=== PATIENT | female | born 1970 | race Caucasian/White ===

== ENCOUNTER 2021-02-11 18:29 | Inpatient (IN) | payer OTHER, SELFPAY ==
[2021-02-11 18:44] VITALS: BP 188/90; PULSE 73; RESP 18; TEMP 36.4; O2SAT 99; BMI 29.2
[2021-02-11 19:50] LABS: Add Manual Diff / Slide Review NO; Basophils Absolute Auto 100 /uL (0-100); Basophils Percent Auto 0.7 % (0-2); Eosinophils Absolute Auto 100 /uL (0-450); Eosinophils Percent Auto 0.8 % (2-4); Hematocrit 45.3 % (36-46); Hemoglobin 15.4 g/dL (12.0-16.0); Lymphocytes Absolute Auto 1400 /uL (1100-4500); Lymphocytes Percent Auto 11.8 % (25-40); Mean Corpuscular HGB Conc 34.1 % (30-36); Mean Corpuscular Hemoglobin 32.9 PG (26-34); Mean Corpuscular Volume 96.7 fL (80-100); Monocytes Absolute Auto 500 /uL (0-900); Monocytes Percent Auto 4.2 % (3-14); Neutrophils Absolute Auto 10100 /uL (1500-7000); Neutrophils Percent Auto 82.5 % (50-75); Platelet Count 394 X10^3/uL (150-400); Red Blood Cell Count 4.69 X10^6/uL (4.0-5.2); Red Cell Distribution Width 12.4 % (11.6-14.8); White Blood Cell Count 12.3 X10^3/uL (4.5-11.0)
[2021-02-11 20:01] LABS: Alanine Aminotransferase 31 IU/L (<35); Albumin 5.4 g/dL (3.5-5.0); Albumin Globulin Ratio 1.3 (1.0-2.8); Alkaline Phosphatase 100 U/L (38-126); Aspartate Aminotransferase 31 IU/L (14-36); BUN Creatinine Ratio 13.6 (6-22); Bilirubin Total 0.6 mg/dL (0.2-1.3); Blood Urea Nitrogen 12 mg/dL (7-17); Calcium 10.4 mg/dL (8.4-10.2); Carbon Dioxide 26 mmol/L (22-32); Chloride 102 mmol/L (98-107); Estimated Glomerular Filt Rate > 60.0 mL/min (>60); Globulin 4.1 g/dL (1.7-4.1); Glucose 114 mg/dL (70-100); HEMOLYSIS < 15 (0-50); Potassium 3.6 mmol/L (3.4-5.1); Sodium 140 mmol/L (137-145); Total Protein 9.5 g/dL (6.3-8.2)
[2021-02-11 20:18] LABS: Lipase 5577 U/L (23-300)
[2021-02-11 20:22] LABS: Bacteria Urine None Seen; Culture Indicated Urine Cult Not Indicated; RBC Urine 0-1/HPF (0-5/HPF); Squamous Epithelial Cell Urine 1-5 /HPF (0-5/HPF); WBC Urine 0-1/HPF (0-5/HPF)
--- NOTE | 2021-02-11 20:39 | ED_ITS ---
HPI - General Adult General Chief complaint: Abdominal Pain Stated complaint: NAUSEA BACK AND ABD PAIN Time Seen by Provider: 02/11/21 18:54 Source: patient Mode of arrival: Family Vehicle Limitations: no limitations History of Present Illness HPI narrative: 50-year-old woman presents with 3 days of increasing left upper abdominal pain and bloating. She has been nauseated but has not actually vomited. She is stooling and has not noticed diarrhea. No dysuria no flank pain. She denies fevers or cough. No tachypnea, tachycardia, orthopnea or lower extremity edema. She notes that she drinks 2-3 glasses of wine daily but does not notice withdrawal symptoms if she is not drinking. She takes no prescription medications at this time. Related Data Allergies Allergy/AdvReac Type Severity Reaction Status Date / Time nitrofurantoin Allergy Rash Verified 02/11/21 18:43 [From Macrobid] Penicillins Allergy Rash Verified 02/11/21 18:42 erythromycin base AdvReac Diarrhea Verified 02/11/21 18:43 Tetracyclines AdvReac Diarrhea Verified 02/11/21 18:43 Review of Systems Review of Systems Narrative: Remainder of complete review of systems is otherwise unremarkable except for that included in the HPI. Patient History Medical History (Updated 02/11/21 @ 22:43 by Bettina Mccracken MD) Pancreatitis Social History Smoking Status: Never smoker Smoking Status: Never smoker alcohol intake frequency: 0-2 drinks per day Alcohol type: wine Substance Use Type: marijuana Exam Narrative Exam Narrative: General: Healthy appearing, in no acute distress. Able to give a complete and coherent history. Well-nourished well-developed HEENT: Moist mucous membranes, normal sclera with reactive pupils, Neck: No JVD, supple Respiratory: Lungs are clear to auscultation, no wheezing no rales no rhonchi. Full and symmetrical air movement Cardiac: Regular rate and rhythm no murmurs no bruits Abdomen: Soft, tender in the left upper quadrant mild distension, no rebound or guarding, good bowel tones, no flank pain Skin: Warm and dry, no rashes Neurologic: Grossly neurologically intact with no obvious asymmetries or abnormalities Extremities: No trauma, well perfused Psych: Cooperative, appropriate insight and affect Initial Vital Signs Initial Vital Signs: Vital Signs Temperature 97.5 F L 02/11/21 18:44 Pulse Rate 73 02/11/21 18:44 Respiratory Rate 18 02/11/21 18:44 Blood Pressure 188/90 H 02/11/21 18:44 Pulse Oximetry 99 02/11/21 18:44 Course Orders Ordered: ED Orders 02/11/21 18:49 EKG-12 Lead Stat 02/11/21 19:35 Complete Blood Count AUTO DIFF Stat Comprehensive Metabolic Panel Stat Ethanol (ETOH) Stat Lipase Stat 02/11/21 20:10 Urine Microscopic Stat 02/11/21 20:40 CT abdomen pelvis w con Stat 02/11/21 21:00 COVID19 - ADMIT (INCOME TAX ADVISOR swab/PCR) Stat Hydromorphone HCl (Hydromorphone 0.5 Mg Inj) 0.5 mg IV Q15MIN PRN PRN Reason: Pain, Last Admin: 02/11/21 20:56 Dose: 0.5 mg Documented by: SOBEIDA Ondansetron HCl (Ondansetron 4 Mg/2 Ml Inj) 4 mg IV PRN PRN PRN Reason: nausea Last Admin: 02/11/21 20:56 Dose: 4 mg Documented by: SOBEIDA Discontinued Medications Sodium Chloride (Normal Saline 0.9%) 1,000 mls @ 1,000 mls/hr IV BOLUS ONE Stop: 02/11/21 21:38 Last Admin: 02/11/21 20:58 Dose: 1,000 mls/hr Documented by: SOBEIDA Thiamine HCl 100 mg/ Sodium (Chloride) 101 mls @ 404 mls/hr IV NOW ONE Stop: 02/11/21 20:40 Last Admin: 02/11/21 20:58 Dose: 404 mls/hr Documented by: SOBEIDA Ceftriaxone Sodium 2,000 mg/ (Sodium Chloride) 100 mls @ 200 mls/hr IV NOW ONE Stop: 02/11/21 21:25 Last Admin: 02/11/21 21:44 Dose: Not Given Documented by: Metronidazole (Flagyl) 500 mg in 100 mls @ 100 mls/hr IV NOW ONE Stop: 02/11/21 22:23 Last Titration: 02/11/21 22:50 Dose: Infused Documented by: Acetaminophen (Ofirmev) 1,000 mg in 100 mls @ 400 mls/hr IV NOW ONE Stop: 02/11/21 22:50 Last Titration: 02/11/21 23:15 Dose: Infused Documented by: Metoclopramide HCl (Metoclopramide 10 Mg/2 Ml Inj) 10 mg IV NOW ONE Stop: 02/11/21 21:44 Last Admin: 02/11/21 21:48 Dose: 10 mg Documented by: Vital Signs Vital signs: Vital Signs - 8 hr 02/11/21 18:44 02/11/21 23:17 Temperature 97.5 F L Pulse Rate 73 67 Respiratory Rate 18 Blood Pressure 188/90 H 158/70 H Pulse Oximetry 99 98 Medical Decision Making Lab Data Result diagrams: 02/11/21 19:35 02/11/21 19:35 Labs: Lab Results 02/11/21 02/11/21 02/11/21 Range/Units 19:35 19:35 19:35 WBC 12.3 H (4.5-11.0) X10^3/uL RBC 4.69 (4.0-5.2) X10^6/uL Hgb 15.4 (12.0-16.0) g/dL Hct 45.3 (36-46) % MCV 96.7 (80-100) fL MCH 32.9 (26-34) PG MCHC 34.1 (30-36) % RDW 12.4 (11.6-14.8) % Plt Count 394 (150-400) X10^3/uL Neut % (Auto) 82.5 H (50-75) % Lymph % (Auto) 11.8 L (25-40) % [place] % (Auto) 4.2 (3-14) % Eos % (Auto) 0.8 L (2-4) % Baso % (Auto) 0.7 (0-2) % Neut # (Auto) 59110 H (8013-5162) /uL Lymph # (Auto) 1400 (4702-1008) /uL [place] # (Auto) 500 (0-900) /uL Eos # (Auto) 100 (0-450) /uL Baso # (Auto) 100 (0-100) /uL Sodium 140 (137-145) mmol/L Potassium 3.6 (3.4-5.1) mmol/L Chloride 102 (98-107) mmol/L Carbon Dioxide 26 (22-32) mmol/L BUN 12 (7-17) mg/dL Creatinine 0.88 (0.52-1.04) mg/dL Estimated GFR > 60.0 (>60) mL/min BUN/Creatinine Ratio 13.6 (6-22) Glucose 114 H (70-100) mg/dL Calcium 10.4 H (8.4-10.2) mg/dL Total Bilirubin 0.6 (0.2-1.3) mg/dL AST 31 (14-36) IU/L ALT 31 (<35) IU/L Alkaline Phosphatase 100 (38-126) U/L Total Protein 9.5 H (6.3-8.2) g/dL Albumin 5.4 H (3.5-5.0) g/dL Globulin 4.1 (1.7-4.1) g/dL Albumin/Globulin Ratio 1.3 (1.0-2.8) Lipase 5577 H (23-300) U/L Urine RBC (0-5/HPF) Urine WBC (0-5/HPF) Ur Squamous Epith Cells (0-5/HPF) Urine Bacteria (None) Ur Culture Indicated? Ethyl Alcohol < 10 ( - 10) mg/dL SARS-CoV-2 (PCR) (Negative) 02/11/21 02/11/21 Range/Units 20:10 21:00 WBC (4.5-11.0) X10^3/uL RBC (4.0-5.2) X10^6/uL Hgb (12.0-16.0) g/dL Hct (36-46) % MCV (80-100) fL MCH (26-34) PG MCHC (30-36) % RDW (11.6-14.8) % Plt Count (150-400) X10^3/uL Neut % (Auto) (50-75) % Lymph % (Auto) (25-40) % [place] % (Auto) (3-14) % Eos % (Auto) (2-4) % Baso % (Auto) (0-2) % Neut # (Auto) (8916-7490) /uL Lymph # (Auto) (7185-4908) /uL [place] # (Auto) (0-900) /uL Eos # (Auto) (0-450) /uL Baso # (Auto) (0-100) /uL Sodium (137-145) mmol/L Potassium (3.4-5.1) mmol/L Chloride (98-107) mmol/L Carbon Dioxide (22-32) mmol/L BUN (7-17) mg/dL Creatinine (0.52-1.04) mg/dL Estimated GFR (>60) mL/min BUN/Creatinine Ratio (6-22) Glucose (70-100) mg/dL Calcium (8.4-10.2) mg/dL Total Bilirubin (0.2-1.3) mg/dL AST (14-36) IU/L ALT (<35) IU/L Alkaline Phosphatase (38-126) U/L Total Protein (6.3-8.2) g/dL Albumin (3.5-5.0) g/dL Globulin (1.7-4.1) g/dL Albumin/Globulin Ratio (1.0-2.8) Lipase (23-300) U/L Urine RBC 0-1/hpf (0-5/HPF) Urine WBC 0-1/hpf (0-5/HPF) Ur Squamous Epith Cells 1-5 /hpf (0-5/HPF) Urine Bacteria None seen (None) Ur Culture Indicated? Cult not indicated Ethyl Alcohol ( - 10) mg/dL SARS-CoV-2 (PCR) Negative (Negative) Point of Care Testing Test Results Negative Urine Dip Bedside Urine Glucose Negative Bedside Urine Bilirubin - Negative Bedside Urine Ketone - Negative Urine Specific [place] 1.025 Bedside Urine Occult Blood - Negative Bedside Urine pH 6.0 Bedside Urine Protein + 30 Bedside Urine Urobilinogen - Negative Bedside Urine Nitrite - Negative Bedside Urine Leukocytes - Negative Esterase Point of care testing: Point of Care Testing Test Results Negative Urine Dip Bedside Urine Glucose Negative Bedside Urine Bilirubin - Negative Bedside Urine Ketone - Negative Urine Specific [place] 1.025 Bedside Urine Occult Blood - Negative Bedside Urine pH 6.0 Bedside Urine Protein + 30 Bedside Urine Urobilinogen - Negative Bedside Urine Nitrite - Negative Bedside Urine Leukocytes - Negative Esterase Imaging Data CT scan - abdomen/pelvis: Radiologist's Impression: FINDINGS:? Image quality:? Excellent.? ? Lung bases:? There is minimal scarring or atelectasis in the left lung base.? ? Heart:? No significant findings. ? ? ABDOMEN: Liver:? There is diffuse hypoattenuation of the liver consistent with fatty infiltration with relative sparing along the gallbladder fossa.? ? Gallbladder:? Within normal limits without calcified gallstones.? ? Biliary ducts:? Unremarkable.? ? Pancreas:? There is mild peripancreatic fat stranding along the pancreatic body and tail consistent with pancreatitis.? No loculated peripancreatic fluid collections.? There is an oval cyst within the body of the pancreas measuring up to 1.5 x 1.2 x 1.5 cm which appears contiguous with the main pancreatic duct.? The pancreatic duct is nondistended. ? ? Spleen:? Unremarkable.? ? Adrenal Glands:? Unremarkable.? ? Kidneys and Ureters:? No hydronephrosis.? There are small left renal cysts.? ? ? Stomach and Bowel:? Stomach, small bowel loops, and colon are normal in caliber and wall thickness.? The appendix is normal in appearance.? There are few colonic diverticula without acute diverticulitis. Peritoneum:? There is minimal free fluid in the pelvis which appears within physiologic limits.? No free air.? ? Ventral Wall: ? No hernia.? Abdominal Nodes:? No retroperitoneal or mesenteric adenopathy by size criteria.? Vessels:? Aorta and inferior vena cava are normal in size.? ? PELVIS: Pelvic Organs:? There is a small left ovarian cyst measuring up to 1.9 cm likely representing a follicular cyst.? Bladder:? Unremarkable.? ? Pelvic Nodes: No enlarged lymph nodes.? Miscellaneous: No inguinal hernias are seen. ? ? ? Bones:? Unremarkable.? IMPRESSION:? ? 1.? Mild peripancreatic fat stranding along the pancreatic body and tail consistent with acute pancreatitis.? No evidence of necrosis or acute peripancreatic fluid collection. ? 2. Small intraparenchymal cyst within the body of the pancreas contiguous with the pancreatic duct likely represents a side branch IPMN.? No associated internal s olid component identified.? No dilatation of the main pancreatic duct.? Recommend follow-up CT or MRI in 12 months to demonstrate stability. ? 3. Hepatic steatosis.? ? Dictated by: Angel Powell M.D. on 02/11/2021 at 21:15? ?? MDM Narrative Medical decision making narrative: 50-year-old woman presents with increasing left upper abdominal pain and bloating for the last 3 days. She notes she does drink 2-3 glasses of wine a day but does not have any withdrawal symptoms if she chooses not to drink. She has had an episode of pancreatitis previously that left her with mildly chronically elevated lipase is she notes at that time her lipase was in the [address] scan today does not suggest significant pathology or mass and no evidence of pancreatic pseudocysts or significant infection. She does have a benign intrapancreatic cyst appreciated. She has multiple sensitivities to medications including all narcotics, she was given a small dose of Dilaudid preceded with Zofran here in the emergency department in his been vomiting since. She is allergic to cephalosporins, penicillins, erythromycin, tetracyclines and nitrofurantoin. She was given a dose of Flagyl while we were waiting to get remainder of workup for her pancreatitis back. At this time I am not sure that antibiotics need to continue and will discuss this with the hospitalist. If they do, she may need a carbapenem if a spectrum broader than Flagyl is felt to be appropriate. 11:28pm Dr Hough accepts admission Discharge Plan Departure Patient Disposition: Admitted as Observation Clinical Impression: Pancreatitis Qualifiers: Chronicity: acute Pancreatitis type: unspecified pancreatitis type Acute pancreatitis complication: no infection or necrosis Qualified Code(s): K85.90 - Acute pancreatitis without necrosis or infection, unspecified
--- NOTE | 2021-02-11 20:40 | DI.CT.S_ITS ---
PROCEDURE: CT ABDOMEN PELVIS W CON INDICATIONS: pancreatitis TECHNIQUE: After the administration of IV contrast, axial sections were acquired from the lung bases to the pubic symphysis. Coronal and sagittal reformats were performed. For radiation dose reduction, the following was used: automated exposure control, adjustment of mA and/or kV according to patient size. COMPARISON: None. FINDINGS: Image quality: Excellent. Lung bases: There is minimal scarring or atelectasis in the left lung base. Heart: No significant findings. ABDOMEN: Liver: There is diffuse hypoattenuation of the liver consistent with fatty infiltration with relative sparing along the gallbladder fossa. Gallbladder: Within normal limits without calcified gallstones. Biliary ducts: Unremarkable. Pancreas: There is mild peripancreatic fat stranding along the pancreatic body and tail consistent with pancreatitis. No loculated peripancreatic fluid collections. There is an oval cyst within the body of the pancreas measuring up to 1.5 x 1.2 x 1.5 cm which appears contiguous with the main pancreatic duct. The pancreatic duct is nondistended. Spleen: Unremarkable. Adrenal Glands: Unremarkable. Kidneys and Ureters: No hydronephrosis. There are small left renal cysts. Stomach and Bowel: Stomach, small bowel loops, and colon are normal in caliber and wall thickness. The appendix is normal in appearance. There are few colonic diverticula without acute diverticulitis. Peritoneum: There is minimal free fluid in the pelvis which appears within physiologic limits. No free air. Ventral Wall: No hernia. Abdominal Nodes: No retroperitoneal or mesenteric adenopathy by size criteria. Vessels: Aorta and inferior vena cava are normal in size. PELVIS: Pelvic Organs: There is a small left ovarian cyst measuring up to 1.9 cm likely representing a follicular cyst. Bladder: Unremarkable. Pelvic Nodes: No enlarged lymph nodes. Miscellaneous: No inguinal hernias are seen. Bones: Unremarkable. IMPRESSION: 1. Mild peripancreatic fat stranding along the pancreatic body and tail consistent with acute pancreatitis. No evidence of necrosis or acute peripancreatic fluid collection. 2. Small intraparenchymal cyst within the body of the pancreas contiguous with the pancreatic duct likely represents a side branch IPMN. No associated internal solid component identified. No dilatation of the main pancreatic duct. Recommend follow-up CT or MRI in 12 months to demonstrate stability. 3. Hepatic steatosis. Dictated by: Angel Powell M.D. on 02/11/2021 at 21:15 Approved by: Angel Powell M.D. on 02/11/2021 at 21:21
[2021-02-11] MEDS: ONDANSETRON 4 MG/2 ML INJ IV (20:56)
[2021-02-11] MEDS: HYDROMORPHONE 0.5 MG INJ IV (20:56)
[2021-02-11] MEDS: THIAMINE 100 MG in SODIUM CHLORIDE 0.9% 100 ML 404 ML IV (20:58)
[2021-02-11] MEDS: SODIUM CHLORIDE 0.9% 1,000 ML 1000 ML IV (20:58)
[2021-02-11 21:06] LABS: Ethanol (ETOH) < 10 mg/dL
--- NOTE | 2021-02-11 21:13 | PC.NURSE ---
Patient very nauseated and dizzy after narcotic. States this happens often. Patient had one episode of vomiting.
[2021-02-11 21:18] VITALS: PULSE 77; O2SAT 98
[2021-02-11 21:30] VITALS: BP 183/86; PULSE 84; O2SAT 98
[2021-02-11] MEDS: metroNIDAZOLE 500 MG/100 ML PIGGYBACK 100 MG IV (21:47)
[2021-02-11] MEDS: METOCLOPRAMIDE 10 MG/2 ML INJ IV (21:48)
[2021-02-11 21:58] LABS: COVID19 - ADMIT (NP swab/PCR) Negative (Negative)
--- NOTE | 2021-02-11 21:58 | PC.NURSE ---
Patient lost control of bladder while vomiting. Assisted to restroom to clean up, underwear, pad and new gown provided. Bedding changed.
[2021-02-11] MEDS: ACETAMINOPHEN IV 1,000 MG/100 ML VIAL 400 MG IV (22:51)
[2021-02-11 23:15] VITALS: BP 158/70; PULSE 64; O2SAT 98
[2021-02-11 23:17] VITALS: BP 158/70; PULSE 67; O2SAT 98
[2021-02-11 23:48] VITALS: O2SAT 84
[2021-02-11 23:52] VITALS: BMI 29.2
[2021-02-12] VITALS (16 sets, daily range): BP systolic 146–165; BP diastolic 70–81; PULSE 62–83; RESP 13–23; TEMP 36.3–36.8; O2SAT 93–100
[2021-02-12] MEDS: SODIUM CHLORIDE 0.9% 1,000 ML 1000 ML IV (00:58)
[2021-02-12] MEDS: SODIUM CHLORIDE 0.9% 1,000 ML 250 ML IV ×3 (00:58→12:14)
[2021-02-12] MEDS: ACETAMINOPHEN 325 MG TABLET 650 MG PO ×4 (01:12→20:03)
--- NOTE | 2021-02-12 01:32 | P.HP_ITS ---
History of Present Illness History of Present Illness Date Patient Seen: 02/12/21 Time Patient Seen: 12:05 Chief complaint: NAUSEA BACK AND ABD PAIN Narrative: Ms. Gould is a 50W with PMH of previous episode of pancreatitis, hyperlipidemia who presents with abdominal pain. She states that she noticed her abdominal pain in the left upper quadrant and radiated to the back. She has been having nausea. She has not had vomiting or diarrhea. No fevers/chills. No chest pain. She drinks 2-3 glasses of wine daily with dinner and dessert. Last drink over 48 hours ago. She presented to the ED, workup was done with temperature 97.5, hr in the 70s, systolic bp in the 180s. Labs notable for WBC 12.3, hgb 15.4, plts 394, Na 140, BUn 12, creatinine 0.88, calcium 10.4. Lipase 5577. EtOH negative. Urinalysis unremarkable. Ct showed mild peripancreatic fat stranding with an intraparenchymal cyst likely IPMN. She was given IV fluids, she did get IV dilaudid and had significant vomiting after this. Family history-Father with Diabetes Medications-patient denied taking medications Patient History Medical History (Updated 02/11/21 @ 22:43 by Bettina Mccracken MD) Pancreatitis Family & Social History Social History: household members significant other Safety & Behavioral: Feels Safe in Current Yes Environment Been Physically Hurt or No Threatened By a Person Suicidal Ideation Description None Suicide Plan Description No Plan Tobacco & Substance use: Smoking Status Never smoker alcohol intake frequency 0-2 drinks per day Substance Use Type marijuana Meds Home Medications and Allergies Allergies Allergy/AdvReac Type Severity Reaction Status Date / Time Cephalosporins Allergy Rash Verified 02/11/21 23:46 nitrofurantoin Allergy Rash Verified 02/11/21 18:43 [From Macrobid] Penicillins Allergy Rash Verified 02/11/21 18:42 erythromycin base AdvReac Diarrhea Verified 02/11/21 18:43 Tetracyclines AdvReac Diarrhea Verified 02/11/21 18:43 Review of Systems Review of Systems Narrative: 14 systems reviewed and negative aside from what is noted in HPI Exam Vital Signs (past 8 hours): - 02/11/21 18:44 02/11/21 23:17 02/12/21 00:07 Temperature 97.5 F L 97.3 F L Pulse Rate 73 67 67 Respiratory Rate 18 16 Blood Pressure 188/90 H 158/70 H 150/71 H Pulse Oximetry 99 98 95 Oxygen Delivery Method Room Air Narrative Exam Narrative: GEN: no acute distress HEENT: moist mucous membranes, PERRL NECK: trachea midline, no JVD PULM: clear bilaterally, no wheezes, rhonchi, rales ABD: soft, minimal tenderness, not distended, normal bowel sounds EXT: warm and well perfused with no edema SKIN: no rashes noted NEURO: awake alert oriented, no focal deficits noted Objective Labs Result Diagrams: 02/11/21 19:35 02/11/21 19:35 Labs: Laboratory Results - last 24 hr 02/11/21 02/11/21 02/11/21 19:35 19:35 19:35 WBC 12.3 H RBC 4.69 Hgb 15.4 Hct 45.3 MCV 96.7 MCH 32.9 MCHC 34.1 RDW 12.4 Plt Count 394 Neut % (Auto) 82.5 H Lymph % (Auto) 11.8 L [place] % (Auto) 4.2 Eos % (Auto) 0.8 L Baso % (Auto) 0.7 Neut # (Auto) 76357 H Lymph # (Auto) 1400 [place] # (Auto) 500 Eos # (Auto) 100 Baso # (Auto) 100 Sodium 140 Potassium 3.6 Chloride 102 Carbon Dioxide 26 BUN 12 Creatinine 0.88 Estimated GFR > 60.0 BUN/Creatinine Ratio 13.6 Glucose 114 H Calcium 10.4 H Total Bilirubin 0.6 AST 31 ALT 31 Alkaline Phosphatase 100 Total Protein 9.5 H Albumin 5.4 H Globulin 4.1 Albumin/Globulin Ratio 1.3 Lipase 5577 H Urine RBC Urine WBC Ur Squamous Epith Cells Urine Bacteria Ur Culture Indicated? Ethyl Alcohol < 10 SARS-CoV-2 (PCR) 02/11/21 02/11/21 20:10 21:00 WBC RBC Hgb Hct MCV MCH MCHC RDW Plt Count Neut % (Auto) Lymph % (Auto) [place] % (Auto) Eos % (Auto) Baso % (Auto) Neut # (Auto) Lymph # (Auto) [place] # (Auto) Eos # (Auto) Baso # (Auto) Sodium Potassium Chloride Carbon Dioxide BUN Creatinine Estimated GFR BUN/Creatinine Ratio Glucose Calcium Total Bilirubin AST ALT Alkaline Phosphatase Total Protein Albumin Globulin Albumin/Globulin Ratio Lipase Urine RBC 0-1/hpf Urine WBC 0-1/hpf Ur Squamous Epith Cells 1-5 /hpf Urine Bacteria None seen Ur Culture Indicated? Cult not indicated Ethyl Alcohol SARS-CoV-2 (PCR) Negative Assessment & Plan Assessment & Plan narrative: Ms. Gould is a 50W who presents with abdominal pain, found to have acute pancreatitis. 1. Acute pancreatitis -lipase 5577, CT with peripancreatic stranding -received 1L IVF in ED, order additional bolus, then start IVF at 250cc/hr -no indication for antibiotics currently -pain control with IV morphine, as vomited with dilaudid -IV zofran ordered -NPO for now, but may be able to advance diet soon -etiology is possibly EtOH, otherwise LFTs normal, calcium mildly elevated, lipids/triglycerides ordered, no new meds/OTC/herbals per patient 2. EtOH abuse -no evidence of withdrawal currently -CIWA protocol ordered for benzos PRN CODE: Full Proxy: Wesly Cardona, family I have utilized all available immediate resources to obtain, update, or review the patient's current medications. Time Spent With Patient Critical Care time: I spent a total of [] minutes of critical care time on this patient's care today; this time is exclusive of procedural time.
[2021-02-12] MEDS: INFLUENZA VACCINE QIV 0.5 ML SYRINGE IM (04:51)
[2021-02-12 05:44] LABS: Add Manual Diff / Slide Review NO; Basophils Absolute Auto 0 /uL (0-100); Basophils Percent Auto 0.2 % (0-2); Eosinophils Absolute Auto 0 /uL (0-450); Eosinophils Percent Auto 0.4 % (2-4); Hematocrit 39.3 % (36-46); Hemoglobin 13.2 g/dL (12.0-16.0); Lymphocytes Absolute Auto 1300 /uL (1100-4500); Lymphocytes Percent Auto 11.4 % (25-40); Mean Corpuscular HGB Conc 33.6 % (30-36); Mean Corpuscular Hemoglobin 32.6 PG (26-34); Mean Corpuscular Volume 96.9 fL (80-100); Monocytes Absolute Auto 500 /uL (0-900); Monocytes Percent Auto 4.4 % (3-14); Neutrophils Absolute Auto 9600 /uL (1500-7000); Neutrophils Percent Auto 83.6 % (50-75); Platelet Count 338 X10^3/uL (150-400); Red Blood Cell Count 4.05 X10^6/uL (4.0-5.2); Red Cell Distribution Width 12.4 % (11.6-14.8); White Blood Cell Count 11.5 X10^3/uL (4.5-11.0)
[2021-02-12 05:59] LABS: BUN Creatinine Ratio 13.3 (6-22); Blood Urea Nitrogen 10 mg/dL (7-17); Calcium 8.7 mg/dL (8.4-10.2); Carbon Dioxide 24 mmol/L (22-32); Chloride 105 mmol/L (98-107); Cholesterol 287 mg/dL (140-199); Estimated Glomerular Filt Rate > 60.0 mL/min (>60); Glucose 115 mg/dL (70-100); HDL Cholesterol 40 mg/dL (40-60); HEMOLYSIS < 15 (0-50); LDL Cholesterol Calculated 199 mg/dL (<100); Magnesium 2.2 mg/dL (1.6-2.3); Phosphorous 3.8 mg/dL (2.5-4.5); Sodium 138 mmol/L (137-145); Triglycerides 238 mg/dL (35-150)
[2021-02-12] MEDS: MORPHINE 2 MG/ML INJ IV ×4 (07:33→21:02)
[2021-02-12] MEDS: ONDANSETRON 4 MG/2 ML INJ IV ×2 (07:37→20:33)
[2021-02-12] MEDS: ENOXAPARIN 40 MG/0.4 ML SYRINGE SUBCUT (09:13)
[2021-02-12] MEDS: MULTIVITAMIN 1 TABLET 1 TAB PO (09:13)
[2021-02-12] MEDS: FOLIC ACID 1 MG TABLET PO (09:13)
--- NOTE | 2021-02-12 12:22 | DI.US.S_ITS ---
PROCEDURE: US ABDOMEN LIMITED INDICATIONS: PANCREATITIS TECHNIQUE: Real-time focused scanning was performed of the abdomen, with image documentation. COMPARISON: [facility], CT, CT ABDOMEN PELVIS W CON, 02/11/2021, 21:58. FINDINGS: The liver demonstrates prominent size. The liver demonstrates generalized moderately increased echogenicity. This decreases ultrasound sensitivity for detection of hepatic masses. No findings of gallstones or sludge are seen. The gallbladder wall is not thickened, measuring 3 mm or less. No specific pericholecystic fluid is seen. The sonographic Gregory sign is negative. There is no biliary dilatation, the common bile duct measures 6 mm. Within the body of the pancreas, there is a 1.8 cm simple appearing cyst seen. No additional pancreatic abnormality is seen on these images. IMPRESSION: A pancreatic cyst is again seen. No additional pancreatic abnormality can be seen on these ultrasound images. Enlarged, fatty liver. Dictated by: Ko Benavides M.D. on 02/12/2021 at 12:21 Approved by: Ko Benavides M.D. on 02/12/2021 at 12:22
--- NOTE | 2021-02-12 16:17 | CM.DANOTE ---
DCP/Assessment: Reviewed chart. Patient is a 50yr old female admitted to [facility] with pancreatitis. Patient currently without PCP. Primary payor is 1)Debbiesheri. Met with patient explained CM/SW role. Patient alert and oriented in bed at time of CANTEEN ATTENDANT visit. Patient reports that she moved to [facility] in December of this year. Patient previously in [place]. Patient moved to [place] for employment. Patient currently works in the [employer] business. Patient reports that she is completely I in all ADL's. Patient indicates that she has had pancreatitis for about 8yrs. Patient reports that it is not alcohol related. Patient does report that she drinks but denies any issue and indicates that she can stop at anytime. Patient plans to return home when medically stable. Currently patient on clears, morphine for pain, and IV fluids. Do not anticipate any issue with patient returning home once stable. P: Home when stable. Significant other can provide transport. Patient may need priority boarding for her return to [facility]. JOSIE Discharge Planning/Care Management CM Discharge Assessment Start: 02/12/21 16:12 Freq: Status: Active Protocol: Document 02/12/21 16:15 KJS (Rec: 02/12/21 16:17 [id number] Discharge Planning Assessment Assigned Single Corner Cutter BRIA Duran Contact Information Wesly Cardona (partner) # Advance Directives? No History Provided By Patient,Medical Record Prior Living Arrangements House Household Members significant other Type of transporation used prior to Drives own vehicle admit Independent with ADL's Yes Is patient alert and oriented? Yes Barriers to Discharge No Discharge Plan Home Transportation Arrangement Significant other, patient may need priority boarding to return to [facility]. Whiteboard Updated in Patient Room with Yes name and ext. # of Single Corner Cutter Review Status In Process Next Review Type Continued Stay Review
[2021-02-12] MEDS: METOCLOPRAMIDE 10 MG/2 ML INJ IV (16:56)
--- NOTE | 2021-02-12 18:49 | PC.NURSE ---
AM shift Assumed care of Patient. Continues with nausea and x1 emesis. Morphine x3 this shift. Ambulating in room indep. Stress incont, brief in place. NS reduced to 50mls/hr, as Pt is voiding excessively and being woke up hourly. Clear liq at bedside, little intake so far. Abd pain cookie referred pain to L back. PIV x1 22g R AC.
[2021-02-12] MEDS: SODIUM CHLORIDE 0.9% 1,000 ML 50 ML IV (20:04)
[2021-02-12] MEDS: THIAMINE 100 MG in SODIUM CHLORIDE 0.9% 100 ML 404 ML IV (21:33)
[2021-02-12] MEDS: LORazepam 1 MG TABLET PO (23:45)
[2021-02-13] MEDS: KETOROLAC 30 MG/ML VIAL 15 MG IV ×3 (00:07→14:18)
[2021-02-13 00:30] VITALS: BP 166/73; PULSE 79; RESP 18; TEMP 37.1; O2SAT 100
[2021-02-13 00:32] VITALS: BP 166/73; PULSE 76; RESP 18
[2021-02-13 04:32] VITALS: BP 154/74; PULSE 84; RESP 18; TEMP 36.7; O2SAT 97
[2021-02-13 05:11] LABS: Add Manual Diff / Slide Review NO; Basophils Absolute Auto 0 /uL (0-100); Basophils Percent Auto 0.2 % (0-2); Eosinophils Absolute Auto 100 /uL (0-450); Eosinophils Percent Auto 0.6 % (2-4); Hematocrit 37.5 % (36-46); Hemoglobin 12.8 g/dL (12.0-16.0); Lymphocytes Absolute Auto 1300 /uL (1100-4500); Lymphocytes Percent Auto 14.5 % (25-40); Mean Corpuscular HGB Conc 34.2 % (30-36); Mean Corpuscular Hemoglobin 32.9 PG (26-34); Mean Corpuscular Volume 96.2 fL (80-100); Monocytes Absolute Auto 400 /uL (0-900); Monocytes Percent Auto 4.6 % (3-14); Neutrophils Absolute Auto 7100 /uL (1500-7000); Neutrophils Percent Auto 80.1 % (50-75); Platelet Count 328 X10^3/uL (150-400); Red Cell Distribution Width 12.3 % (11.6-14.8); White Blood Cell Count 8.8 X10^3/uL (4.5-11.0)
[2021-02-13 05:15] LABS: BUN Creatinine Ratio 10.5 (6-22); Blood Urea Nitrogen 8 mg/dL (7-17); Calcium 8.6 mg/dL (8.4-10.2); Carbon Dioxide 25 mmol/L (22-32); Chloride 104 mmol/L (98-107); Estimated Glomerular Filt Rate > 60.0 mL/min (>60); Glucose 115 mg/dL (70-100); HEMOLYSIS < 15 (0-50); Potassium 3.5 mmol/L (3.4-5.1); Sodium 136 mmol/L (137-145)
[2021-02-13 07:00] VITALS: O2SAT 99
[2021-02-13 08:22] VITALS: BP 153/80; PULSE 90; RESP 17; TEMP 36.5; O2SAT 99
[2021-02-13] MEDS: METOCLOPRAMIDE 10 MG/2 ML INJ IV (08:40)
[2021-02-13] MEDS: FOLIC ACID 1 MG TABLET PO (08:41)
[2021-02-13] MEDS: MULTIVITAMIN 1 TABLET 1 TAB PO (08:41)
--- NOTE | 2021-02-13 09:23 | P.DS_ITS ---
History of Present Illness History of Present Illness Chief complaint: NAUSEA BACK AND ABD PAIN Narrative: Ms. Gould is a 50W with PMH of previous episode of pancreatitis, hyperlipidemia who presents with abdominal pain. She states that she noticed her abdominal pain in the left upper quadrant and radiated to the back. She has been having nausea. She has not had vomiting or diarrhea. No fevers/chills. No chest pain. She drinks 2-3 glasses of wine daily with dinner and dessert. Last drink over 48 hours ago. She presented to the ED, workup was done with temperature 97.5, hr in the 70s, systolic bp in the 180s. Labs notable for WBC 12.3, hgb 15.4, plts 394, Na 140, BUn 12, creatinine 0.88, calcium 10.4. Lipase 5577. EtOH negative. Urinalysis unremarkable. Ct showed mild peripancreatic fat stranding with an intraparenchymal cyst likely IPMN. She was given IV fluids, she did get IV dilaudid and had significant vomiting after this. Family history-Father with Diabetes Medications-patient denied taking medications Discharge Providers Provider Date of admission: 02/11/21 23:28 Discharge Date: 02/13/21 Discharge provider: Peyman Hough MD Summary Hospital Course Discharge Diagnosis: 1. Acute pancreatitis 2. EtOH abuse 3. Hyperlipidemia Hospital Course: Ms. Gould was admitted with abdominal pain. Workup was negative for any significant structural issue, normal LFTs, only mildly elevated calcium, and only mildly elevated triglycerides. No new medications. Her etiology was most likely related to alcohol use, though she was not a heavy drinker. She did well with IV fluids and pain control. She was advised to stop drinking. She will follow up with her PCP to discuss statin for her hyperlipidemia. Exam Vital Signs (past 8 hours): Fraction of Inspired Oxygen 21 Oxygen Delivery Method Room Air Oxygen Flow Rate 0 Narrative Exam Narrative: GEN: no acute distress HEENT: moist mucous membranes, PERRL NECK: trachea midline, no JVD PULM: clear bilaterally, no wheezes, rhonchi, rales ABD: soft, nontender, not distended, normal bowel sounds EXT: warm and well perfused with no edema SKIN: no rashes noted NEURO: awake alert oriented, no focal deficits noted Objective Labs Result Diagrams: 02/13/21 04:34 02/13/21 04:34 [facility] Medical History (Updated 02/11/21 @ 22:43 by Bettina Mccracken MD) Pancreatitis Social History household members: significant other Smoking Status: Never smoker Discharge Plan Discharge Plan Patient Disposition: Home Provider Discharge Comment: Ms. Gould came in to the hospital with abdominal pain. She was found to have pancreatitis, likely caused by alcohol. She improved with IV fluids and pain medications. She is discharged home after being able to tolerate eating and drinking. Please avoid fatty foods for the next couple days as those can cause more abdominal pain. Please avoid alcohol use. Nursing Discharge Comment: Please follow up with your primary care DR, they will ilkely recomend that you start Statin therapy related to your cholesterol level. Discharge orders & Medications Prescriptions: New folic acid 1 mg Tablet 1 mg PO DAILY Qty: 30 RF: 0 multivitamin with folic acid [Tab-A-Arun] 400 mcg Tablet 1 tab PO DAILY Qty: 30 RF: 0 thiamine HCl (vitamin B1) 100 mg tablet 50 mg PO DAILY Qty: 30 RF: 0 ondansetron HCl [Zofran] 4 mg tablet 4 mg PO Q8H Qty: 10 RF: 0 tramadol 50 mg tablet 50 mg PO Q8H PRN (Reason: pain) Qty: 14 RF: 0 Diet/Activity/Treatments Diet: Low-fat Visit Report/Discharge Packet Instructions: Statin Drugs, Acute Pancreatitis, Cholesterol-lowering Diet, DI for Pancreatitis
--- NOTE | 2021-02-13 10:13 | PC.NURSE ---
Am shift Pt reports good rest overnight after ativan dosing and increased CIWA score. CIWA scoring 3 today, r/t BALDERAS. Nausea improved. Full liquid, low fat diet. BALDERAS Toradol given. If tolerating PO intake, will trial lunch and potential to DC home. Will need priority boarding pass for [employer].
[2021-02-13 11:42] VITALS: BP 138/76; PULSE 85; RESP 15; TEMP 36.6; O2SAT 95
[2021-02-13] MEDS: ONDANSETRON 4 MG/2 ML INJ IV (14:18)
== END 2021-02-13 14:31 | disposition home or self-care (01) | DRG 440 ==
LOC: ED 22:43 → ICU 02-12 08:45 → AC 02-12 10:01
PROVIDERS: Internal Medicine; Admitting Provider Internal Medicine; Emergency Provider Emergency Medicine; Visit Provider Internal Medicine
DX: K85.90 Acute pancreatitis without necrosis or infection, unspecified (principal); F10.10 Alcohol abuse, uncomplicated; Y90.0 Blood alcohol level of less than 20 mg/100 ml; R03.0 Elevated blood-pressure reading, without diagnosis of hypertension; Z20.822 Contact with and (suspected) exposure to COVID-19; Z23 Encounter for immunization
CPT/HCPCS: 36415; 74177; 76705; 80048; 80053; 80061; 80320; 81003; 81015; 81025; 83690; 83735; 84100; 85025; 87635; 87797; 90471; 90656; 93005; 93010; 94760; 96365; 96367; 96375; 99284; 99285; C9803; J0131; J1170; J1650; J1885; J2270; J2405; J2765; Q2038; Q9967

== ENCOUNTER → 2021-10-29 09:42 | Outpatient (CLI) | payer OTHER, SELFPAY ==
[2021-10-29 19:56] LABS: Add Manual Diff / Slide Review NO; Basophils Absolute Auto 100 /uL (0-100); Basophils Percent Auto 0.9 % (0-2); Eosinophils Absolute Auto 100 /uL (0-450); Eosinophils Percent Auto 1.5 % (2-4); Hematocrit 39.9 % (36-46); Lymphocytes Absolute Auto 1000 /uL (1100-4500); Lymphocytes Percent Auto 17.2 % (25-40); Mean Corpuscular HGB Conc 35.1 % (30-36); Mean Corpuscular Hemoglobin 33.6 PG (26-34); Mean Corpuscular Volume 95.7 fL (80-100); Monocytes Absolute Auto 400 /uL (0-900); Monocytes Percent Auto 6.7 % (3-14); Neutrophils Absolute Auto 4500 /uL (1500-7000); Neutrophils Percent Auto 73.7 % (50-75); Platelet Count 297 X10^3/uL (150-400); Red Blood Cell Count 4.16 X10^6/uL (4.0-5.2); Red Cell Distribution Width 12.4 % (11.6-14.8); White Blood Cell Count 6.1 X10^3/uL (4.5-11.0)
[2021-10-29 20:03] LABS: Alanine Aminotransferase 40 IU/L (<35); Albumin 4.4 g/dL (3.5-5.0); Albumin Globulin Ratio 1.6 (1.0-2.8); Alkaline Phosphatase 83 U/L (38-126); Aspartate Aminotransferase 45 IU/L (14-36); BUN Creatinine Ratio 15.9 (6-22); Bilirubin Total 0.6 mg/dL (0.2-1.3); Blood Urea Nitrogen 13 mg/dL (7-17); Carbon Dioxide 23 mmol/L (22-32); Chloride 102 mmol/L (98-107); Cholesterol 201 mg/dL (140-199); Estimated Glomerular Filt Rate > 60 mL/min (>60); Globulin 2.8 g/dL (1.7-4.1); Glucose 112 mg/dL (70-100); HDL Cholesterol 43 mg/dL (40-60); HEMOLYSIS 20 (0-50); LDL Cholesterol Calculated 92 mg/dL (<100); Potassium 4.2 mmol/L (3.4-5.1); Sodium 137 mmol/L (137-145); Total Protein 7.2 g/dL (6.3-8.2); Triglycerides 331 mg/dL (35-150)
== END ==
PROVIDERS: PCP Physician Assistant Medical; Visit Provider Physician Assistant Medical
DX: Z11.2 Encounter for screening for other bacterial diseases (principal); Z11.8 Encounter for screening for other infectious and parasitic diseases; Z12.11 Encounter for screening for malignant neoplasm of colon
CPT/HCPCS: 80053; 80061; 84443; 85025

== ENCOUNTER → 2022-05-28 10:16 | Outpatient (CLI) | payer OTHER, SELFPAY ==
--- NOTE | 2022-05-28 | DI.US.S_ITS ---
PROCEDURE: US BREAST RT LIMITED COMPARISON: None. INDICATIONS: ABNORMAL MAMMOGRAM FINDINGS: IMPRESSION: Dictated by: Heaven Woodard M.D. on 05/28/2022 at 11:21 Approved by: Heaven Woodard M.D. on 05/28/2022 at 11:29
--- NOTE | 2022-05-28 10:17 | DI.MG.S_ITS ---
BILATERAL DIGITAL DIAGNOSTIC MAMMOGRAM 3D/2D SHORT-TERM FOLLOW-UP: 05/28/2022 CLINICAL: Late short term follow up, due bilateral. Comparison is made to exams dated: 03/23/2020 mammogram, 03/11/2020 mammogram, 12/20/2014 mammogram, and 02/17/2012 mammogram - outside location. Both breasts are heterogeneously dense, which may obscure small masses (category c / 51-75% glandular tissue). There is an asymmetry in the right breast anterior depth lateral region seen on the craniocaudal view only. This is seen in additional views. No other significant masses, calcifications, or other findings are seen in either breast. IMPRESSION: INCOMPLETE: NEEDS ADDITIONAL IMAGING EVALUATION The asymmetry in the right breast is indeterminate. A targeted ultrasound of the right breast is recommended and will be performed immediately following this exam. This exam was interpreted at Station ID: [id number]. NOTE: For mammograms, a report in lay terms will be sent to the patient. Approximately 15% of breast malignancies will not be visualized mammographically. In the management of a palpable breast mass, a negative mammogram must not discourage biopsy of a clinically suspicious lesion. Electronically Signed By: Heaven Woodard M.D. lk/:05/28/2022 11:12:01 ACR BI-RADS Category 0: Incomplete 3340F
--- NOTE | 2022-05-28 11:06 | DI.US.S_ITS ---
ULTRASOUND OF RIGHT BREAST: 05/28/2022 CLINICAL: Patient returns today to evaluate a focal asymmetry in the right breast. Comparison is made to exams dated: 05/28/2022 mammogram - [facility], 03/23/2020 mammogram, 03/11/2020 mammogram, and 12/20/2014 mammogram - outside location. Color flow ultrasound of the right breast was performed on the areas of interest. Saucedo scale images of the real-time examination were reviewed. There is a round cyst in the right breast at 9 o'clock anterior depth. This round cyst is hypoechoic with internal echoes and posterior acoustic enhancement. This correlates with mammography findings. Color flow imaging demonstrates that there is no vascularity present. There also is an irregular mass in the right axillary tail. This irregular mass is isoechoic to the surrounding subcutaneous fat. This correlates as palpated by the patient. IMPRESSION: PROBABLY BENIGN The round cyst in the right breast at 9 o'clock anterior depth is consistent with complicated cysts and is probably benign. A follow-up ultrasound in 6 months is recommended. The irregular mass in the right axillary tail has a differential diagnosis of a lymph node with a large fatty hilum or a lipoma and is probably benign. A follow-up ultrasound in 6 months is recommended to demonstrate stability. This exam was interpreted at Station ID: [id number]. Electronically Signed By: Heaven Woodard M.D. Continued Report - Page 2 of 2 Patient Name: PHILLIP ALFARO date: 1970 Sex: F Attending Physician: Troy Indications: Date: 05/28/2022 11:29 At the request of: RADHA BINGHAM Procedure: US breast RT limited lk/:05/28/2022 11:29:18 letter sent: Followup Recommended Ultrasound BI-RADS: 3 Probably benign
== END ==
PROVIDERS: PCP Physician Assistant Medical; Referring Provider Physician Assistant Medical; Visit Provider Physician Assistant Medical
DX: R92.8 Other abnormal and inconclusive findings on diagnostic imaging of breast (principal); N60.01 Solitary cyst of right breast; N63.31 Unspecified lump in axillary tail of the right breast
CPT/HCPCS: 76642; 77066; G0279

== ENCOUNTER → 2023-04-14 10:27 | Outpatient (CLI) | payer OTHER, SELFPAY ==
[2023-04-14 19:55] LABS: Alanine Aminotransferase 69 IU/L (<35); Albumin 4.7 g/dL (3.5-5.0); Albumin Globulin Ratio 1.3 (1.0-2.8); Alkaline Phosphatase 111 U/L (38-126); Aspartate Aminotransferase 63 IU/L (14-36); Bilirubin Total 0.6 mg/dL (0.2-1.3); Blood Urea Nitrogen 19 mg/dL (7-17); Calcium 10.2 mg/dL (8.4-10.2); Carbon Dioxide 25 mmol/L (22-32); Chloride 101 mmol/L (98-107); Estimated Glomerular Filt Rate > 60 mL/min (>60); Globulin 3.7 g/dL (1.7-4.1); Glucose 113 mg/dL (70-100); HDL Cholesterol 50 mg/dL (40-60); Sodium 139 mmol/L (137-145); Total Protein 8.4 g/dL (6.3-8.2)
[2023-04-14 20:02] LABS: HEMOLYSIS 17 (0-50)
[2023-04-14 20:04] LABS: Triglycerides 524 mg/dL (35-150)
[2023-04-14 20:08] LABS: Cholesterol 381 mg/dL (140-199)
[2023-04-14 20:27] LABS: TSH w/ Reflex to FT4 0.72 uIU/mL (0.47-4.68)
[2023-04-15 21:01] LABS: Hep C Virus Ab w/Reflex Quant NEGATIVE s/c (NEGATIVE)
== END ==
PROVIDERS: PCP Physician Assistant; Visit Provider Physician Assistant
DX: Z13.1 Encounter for screening for diabetes mellitus (principal); Z11.59 Encounter for screening for other viral diseases; E78.5 Hyperlipidemia, unspecified; Z83.49 Family history of other endocrine, nutritional and metabolic diseases; Z81.8 Family history of other mental and behavioral disorders; Z83.3 Family history of diabetes mellitus
CPT/HCPCS: 80053; 80061; 83036; 84443; 86803

== ENCOUNTER → 2023-04-29 09:05 | Outpatient (CLI) | payer OTHER, SELFPAY ==
[2023-04-29 20:04] LABS: Lipase 1558 U/L (23-300)
== END ==
PROVIDERS: PCP Physician Assistant; Visit Provider Physician Assistant
DX: Z87.19 Personal history of other diseases of the digestive system (principal); E78.2 Mixed hyperlipidemia
CPT/HCPCS: 83690

== ENCOUNTER → 2023-05-14 10:30 | Outpatient (CLI) | payer OTHER, SELFPAY ==
--- NOTE | 2023-05-14 10:32 | DI.MG.S_ITS ---
BILATERAL DIGITAL DIAGNOSTIC MAMMOGRAM 3D/2D SHORT-TERM FOLLOW-UP: 05/14/2023 CLINICAL: Short term follow up of the right breast, due for bilateral imaging. Comparison is made to exams dated: 05/28/2022 mammogram - [facility], 03/23/2020 mammogram, 03/11/2020 mammogram, and 12/20/2014 mammogram - outside location. Both breasts are heterogeneously dense, which may obscure small masses (category c / 51-75% glandular tissue). There is a stable asymmetry in the right breast anterior depth lateral region seen on the craniocaudal view only which is unchanged from the 2019 mammogram. No other significant masses, calcifications, or other findings are seen in either breast. IMPRESSION: BENIGN There is no mammographic evidence of malignancy. Return to annual mammogram screening schedule is recommended. Based on the Tyrer Cuzick model (a risk assessment model) the patient's lifetime risk is 19.7% and her 10 year risk is 5.6%. According to the ACR, ACS, and NCCN guidelines, an annual breast MRI exam along with mammogram is recommended if the patient's lifetime risk is 20% or greater. This exam was interpreted at Station ID: [id number]. NOTE: For mammograms, a report in lay terms will be sent to the patient. Approximately 15% of breast malignancies will not be visualized mammographically. In the management of a palpable breast mass, a negative mammogram must not discourage biopsy of a clinically suspicious lesion. Electronically Signed By: Heaven Woodard M.D. lk/:05/14/2023 12:47:47 letter sent: Normal Exam ACR BI-RADS Category 2: Benign Finding(s) 3342F
--- NOTE | 2023-05-14 10:32 | DI.CT.S_ITS ---
PROCEDURE: CT ABDOMEN PANCREATIC PROTOCOL INDICATIONS: CYST OF PANCREAS, HX OF PANCREATITIS TECHNIQUE: Both before and after the administration of intravenous contrast, 3 mm thick pancreatic-phase images acquired from the diaphragm to the iliac crests. 3 mm thick coronal and sagittal reformats were performed. For radiation dose reduction, the following was used: automated exposure control, adjustment of mA and/or kV according to patient size. COMPARISON: None. FINDINGS: Image quality: Diagnostic. Lower chest: Unremarkable. ABDOMEN: Pancreas: Simple appearing cystic lesion in the tail of the pancreas measuring 2.4 x 2.7 cm (series 5, image 42) . The pancreatic duct is closely associated. Liver: Hepatic steatosis. Gallbladder: No radiopaque gallstones or wall thickening. Biliary ducts: No biliary dilation. Adrenal Glands: No nodules. Spleen: Size is within normal limits. Kidneys and Ureters: No hydronephrosis. No solid mass. No complex renal cystic lesion which requires follow up. Stomach and Bowel: Normal colonic caliber, without significant wall thickening. Peritoneum: No abnormal intraperitoneal fluid. No free air. Ventral Wall: No hernia. Abdominal Nodes: No retroperitoneal or mesenteric adenopathy by size criteria. Vessels: Aorta and inferior vena cava are normal in size. Bones: No aggressive osseous abnormality. IMPRESSION: Simple appearing pancreatic cystic lesion with close association to the pancreatic duct, located within the pancreatic tail. Differential includes sequela of prior pancreatitis (pseudocyst or walled off necrosis), side branch IPMN or other cystic neoplasm. Recommend GI referral given size. No pancreatic ductal dilation or nodularity. Dictated by: Cosmo Machado M.D. on 05/14/2023 at 13:12 Approved by: Cosmo Machado M.D. on 05/14/2023 at 13:19
== END ==
LOC: CT 10:31
PROVIDERS: PCP Physician Assistant; Referring Provider Physician Assistant; Visit Provider Physician Assistant
DX: R92.8 Other abnormal and inconclusive findings on diagnostic imaging of breast (principal); R92.333 Mammographic heterogeneous density, bilateral breasts; K86.2 Cyst of pancreas; K76.0 Fatty (change of) liver, not elsewhere classified; Z87.19 Personal history of other diseases of the digestive system
CPT/HCPCS: 74170; 77066; G0279; Q9967

== ENCOUNTER → 2023-07-22 08:52 | Outpatient (CLI) | payer OTHER, SELFPAY ==
[2023-07-22 19:50] LABS: Alanine Aminotransferase 43 IU/L (<35); Albumin 4.6 g/dL (3.5-5.0); Albumin Globulin Ratio 1.8 (1.0-2.8); Alkaline Phosphatase 95 U/L (38-126); Aspartate Aminotransferase 49 IU/L (14-36); Bilirubin Total 0.7 mg/dL (0.2-1.3); Blood Urea Nitrogen 15 mg/dL (7-17); Calcium 9.5 mg/dL (8.4-10.2); Carbon Dioxide 26 mmol/L (22-32); Chloride 108 mmol/L (98-107); Cholesterol 221 mg/dL (140-199); Estimated Glomerular Filt Rate > 60 mL/min (>60); Globulin 2.6 g/dL (1.7-4.1); Glucose 112 mg/dL (70-100); HDL Cholesterol 49 mg/dL (40-60); HEMOLYSIS < 15 (0-50); LDL Cholesterol Calculated 100 mg/dL (<100); Potassium 4.1 mmol/L (3.4-5.1); Sodium 140 mmol/L (137-145); Total Protein 7.2 g/dL (6.3-8.2); Triglycerides 362 mg/dL (35-150)
== END ==
PROVIDERS: PCP Physician Assistant; Visit Provider Physician Assistant
DX: E78.2 Mixed hyperlipidemia (principal); I10 Essential (primary) hypertension; Z79.899 Other long term (current) drug therapy
CPT/HCPCS: 80053; 80061

== ENCOUNTER → 2023-09-08 13:00 | Outpatient (CLI) | payer OTHER, SELFPAY | PROVIDERS: PCP Physician Assistant; Visit Provider Physician Assistant | DX: R14.0 Abdominal distension (gaseous) (principal); R19.5 Other fecal abnormalities | CPT/HCPCS: 87045; 87177 ==

== ENCOUNTER 2023-09-09 11:14 | Emergency (ER) | payer OTHER, SELFPAY ==
[2023-09-09 11:40] VITALS: BP 176/78; PULSE 75; RESP 16; TEMP 35.9; O2SAT 99; BMI 27.3
[2023-09-09 13:52] LABS: Add Manual Diff / Slide Review NO; Basophils Absolute Auto 100 /uL (0-100); Basophils Percent Auto 0.6 % (0-2); Eosinophils Absolute Auto 100 /uL (0-450); Hematocrit 42.6 % (36-46); Hemoglobin 14.7 g/dL (12.0-16.0); Lymphocytes Absolute Auto 1900 /uL (1100-4500); Lymphocytes Percent Auto 23.3 % (25-40); Mean Corpuscular HGB Conc 34.4 % (30-36); Mean Corpuscular Hemoglobin 33.3 PG (26-34); Mean Corpuscular Volume 96.6 fL (80-100); Monocytes Absolute Auto 500 /uL (0-900); Monocytes Percent Auto 6.5 % (3-14); Neutrophils Absolute Auto 5700 /uL (1500-7000); Neutrophils Percent Auto 68.6 % (50-75); Platelet Count 338 X10^3/uL (150-400); Red Cell Distribution Width 12.2 % (11.6-14.8); White Blood Cell Count 8.3 X10^3/uL (4.5-11.0)
[2023-09-09 14:07] LABS: Alanine Aminotransferase 51 IU/L (<35); Albumin 4.9 g/dL (3.5-5.0); Albumin Globulin Ratio 1.4 (1.0-2.8); Alkaline Phosphatase 99 U/L (38-126); Aspartate Aminotransferase 56 IU/L (14-36); BUN Creatinine Ratio 18.4 (6-22); Bilirubin Total 0.7 mg/dL (0.2-1.3); Blood Urea Nitrogen 16 mg/dL (7-17); Calcium 9.4 mg/dL (8.4-10.2); Carbon Dioxide 22 mmol/L (22-32); Chloride 108 mmol/L (98-107); Estimated Glomerular Filt Rate > 60 mL/min (>60); Globulin 3.6 g/dL (1.7-4.1); Glucose 108 mg/dL (70-100); HEMOLYSIS 48 (0-50); Lipase 281 U/L (23-300); Potassium 4.5 mmol/L (3.4-5.1); Sodium 138 mmol/L (137-145); Total Protein 8.5 g/dL (6.3-8.2)
--- NOTE | 2023-09-09 19:21 | ED.ABDPAIN ---
HPI - Abdominal Pain General Chief Complaint: Abdominal Pain Stated Complaint: Sick for a couple weeks, stomach pain Source: patient Mode of arrival: Ambulatory History of Present Illness HPI narrative: Patient left without seeing provider. Related Data Previous Rx's Medication Instructions Recorded multivitamin with folic acid 400 1 tab PO DAILY #30 tabs 02/13/21 mcg tablet (Tab-A-Arun) ondansetron HCl 4 mg tablet 4 mg PO Q8H #10 tabs 02/13/21 (Zofran) lisinopril 10 mg tablet 10 mg PO DAILY #90 tabs 04/29/23 atorvastatin 10 mg tablet 10 mg PO ONCE PM #90 tabs 08/04/23 Allergies Allergy/AdvReac Type Severity Reaction Status Date / Time Cephalosporins Allergy Rash Verified 09/09/23 11:45 nitrofurantoin Allergy Rash Verified 09/09/23 11:45 [From Macrobid] Penicillins Allergy Rash Verified 09/09/23 11:45 erythromycin base AdvReac Diarrhea Verified 09/09/23 11:45 Tetracyclines AdvReac Diarrhea Verified 09/09/23 11:45 Patient History Medical History (Updated 09/09/23 @ 15:38 by Katharine Funk RN) Fibromyalgia (~2005) Recurrent sinusitis (~1999) Ovarian cyst (~2015) Herpes (~2007) Fibroids (~2005) Peptic ulcer disease (~1987) Gastric ulcer (~1987) Colitis (~1987) Cardiac arrhythmia (~2014) Pancreatitis (~02/2021) Surgical History (Updated 12/20/21 @ 21:40 by Martha Rizo) History of tonsillectomy (~1990) Anesthesia History of surgery on arm (~1976) History of sinus surgery (~2001) History of tubal ligation (~11/2005) History of hand surgery (~05/2018) Family History (Updated 12/20/21 @ 21:42 by Martha Rizo) Father Dementia Diabetes mellitus Mother Hyperlipidemia Thyroid disease Sister Diabetes mellitus Grandfather Cancer Grandmother Diabetes mellitus Grandmother Breast cancer Social History household members: significant other Smoking Status: Never smoker Smoking Status: Never smoker alcohol intake frequency: 0-2 drinks per day Alcohol type: wine Substance Use Type: marijuana Exam Initial Vital Signs Initial Vital Signs: Vital Signs Temperature 96.7 F L 06/04/24 11:40 Pulse Rate 75 09/09/23 11:40 Respiratory Rate 16 09/09/23 11:40 Blood Pressure 176/78 H 09/09/23 11:40 Pulse Oximetry 99 09/09/23 11:40 Oxygen Delivery Method Room Air 09/09/23 11:40 Course Orders Ordered: ED Orders 09/09/23 13:43 Complete Blood Count AUTO DIFF Stat Comprehensive Metabolic Panel Stat Lipase Stat Discontinued Medications Ondansetron HCl (Ondansetron 4 Mg Odt) 4 mg PO NOW PRN PRN Reason: Nausea And Vomiting Ondansetron HCl (Ondansetron 4 Mg/2 Ml Inj) 4 mg IV NOW PRN PRN Reason: Nausea And Vomiting Vital Signs Vital signs: Vital Signs - 8 hr 09/09/23 11:40 Temperature 96.7 F L Pulse Rate 75 Respiratory Rate 16 Blood Pressure 176/78 H Pulse Oximetry 99 Oxygen Delivery Method Room Air MDM - Abdominal Pain Lab Data 09/09/23 13:43 09/09/23 13:43 Labs: Lab Results 09/09/23 Range/Units 13:43 WBC 8.3 (4.5-11.0) X10^3/uL RBC 4.40 (4.0-5.2) X10^6/uL Hgb 14.7 (12.0-16.0) g/dL Hct 42.6 (36-46) % MCV 96.6 (80-100) fL MCH 33.3 (26-34) PG MCHC 34.4 (30-36) % RDW 12.2 (11.6-14.8) % Plt Count 338 (150-400) X10^3/uL Neut % (Auto) 68.6 (50-75) % Lymph % (Auto) 23.3 L (25-40) % [place] % (Auto) 6.5 (3-14) % Eos % (Auto) 1.0 L (2-4) % Baso % (Auto) 0.6 (0-2) % Neut # (Auto) 5700 (2442-8502) /uL Lymph # (Auto) 1900 (7698-6547) /uL [place] # (Auto) 500 (0-900) /uL Eos # (Auto) 100 (0-450) /uL Baso # (Auto) 100 (0-100) /uL Sodium 138 (137-145) mmol/L Potassium 4.5 (3.4-5.1) mmol/L Chloride 108 H (98-107) mmol/L Carbon Dioxide 22 (22-32) mmol/L BUN 16 (7-17) mg/dL Creatinine 0.87 (0.52-1.04) mg/dL Estimated GFR > 60 (>60) mL/min BUN/Creatinine Ratio 18.4 (6-22) Glucose 108 H (70-100) mg/dL Calcium 9.4 (8.4-10.2) mg/dL Total Bilirubin 0.7 (0.2-1.3) mg/dL AST 56 H (14-36) IU/L ALT 51 H (<35) IU/L Alkaline Phosphatase 99 (38-126) U/L Total Protein 8.5 H (6.3-8.2) g/dL Albumin 4.9 (3.5-5.0) g/dL Globulin 3.6 (1.7-4.1) g/dL Albumin/Globulin Ratio 1.4 (1.0-2.8) Lipase 281 (23-300) U/L Point of care testing: Urine Dip Bedside Urine Glucose Negative Bedside Urine Bilirubin - Negative Bedside Urine Ketone - Negative Urine Specific [place] 1.030 Bedside Urine Occult Blood - Negative Bedside Urine pH 5.5 Bedside Urine Protein - Negative Bedside Urine Urobilinogen - Negative Bedside Urine Nitrite - Negative Bedside Urine Leukocytes - Negative Esterase Discharge Plan Departure Patient Disposition: Left Without Being Seen Clinical Impression: Patient left without being seen Prescriptions: No Action atorvastatin 10 mg tablet 10 mg PO ONCE PM Qty: 90 0RF multivitamin with folic acid [Tab-A-Arun] 400 mcg Tablet 1 tab PO DAILY Qty: 30 0RF ondansetron HCl [Zofran] 4 mg tablet 4 mg PO Q8H Qty: 10 0RF lisinopril 10 mg tablet 10 mg PO DAILY MDD 10mg Qty: 90 1RF
== END 2023-09-09 15:38 | disposition left against medical advice (07) ==
PROVIDERS: Emergency Medicine; Emergency Provider Emergency Medicine; PCP Physician Assistant
DX: R10.9 Unspecified abdominal pain (principal)
CPT/HCPCS: 36415; 80053; 81003; 83690; 85025; 99283

== ENCOUNTER → 2023-12-10 10:37 | Outpatient (CLI) | payer OTHER, SELFPAY ==
[2023-12-10 20:01] LABS: Alanine Aminotransferase 43 IU/L (<35); Albumin Globulin Ratio 1.3 (1.0-2.8); Alkaline Phosphatase 111 U/L (38-126); Aspartate Aminotransferase 47 IU/L (14-36); BUN Creatinine Ratio 19.1 (6-22); Bilirubin Total 0.6 mg/dL (0.2-1.3); Blood Urea Nitrogen 17 mg/dL (7-17); Calcium 9.1 mg/dL (8.4-10.2); Carbon Dioxide 19 mmol/L (22-32); Chloride 107 mmol/L (98-107); Cholesterol 270 mg/dL (140-199); Estimated Glomerular Filt Rate > 60 mL/min (>60); Globulin 3.1 g/dL (1.7-4.1); Glucose 138 mg/dL (70-100); HDL Cholesterol 41 mg/dL (40-60); Lipase 841 U/L (23-300); Potassium 4.3 mmol/L (3.4-5.1); Sodium 137 mmol/L (137-145); Total Protein 7.1 g/dL (6.3-8.2)
[2023-12-10 20:12] LABS: HEMOLYSIS 51 (0-50); Triglycerides 834 mg/dL (35-150)
[2023-12-12 00:36] LABS: Hepatitis A Antibody IgM Negative (Negative)
== END ==
PROVIDERS: PCP Physician Assistant; Visit Provider Physician Assistant
DX: E78.5 Hyperlipidemia, unspecified (principal); R74.8 Abnormal levels of other serum enzymes; K76.0 Fatty (change of) liver, not elsewhere classified; R14.0 Abdominal distension (gaseous); R19.5 Other fecal abnormalities; Z87.19 Personal history of other diseases of the digestive system
CPT/HCPCS: 80053; 80061; 83690; 86709

== ENCOUNTER → 2024-09-07 10:46 | Outpatient (CLI) | payer OTHER, SELFPAY ==
[2024-09-07 19:08] LABS: Alanine Aminotransferase 36 IU/L (<35); Albumin Globulin Ratio 1.7 (1.0-2.8); Alkaline Phosphatase 105 U/L (38-126); Aspartate Aminotransferase 41 IU/L (14-36); BUN Creatinine Ratio 18.7 (6-22); Bilirubin Total 0.7 mg/dL (0.2-1.3); Blood Urea Nitrogen 17 mg/dL (7-17); Carbon Dioxide 24 mmol/L (22-32); Chloride 103 mmol/L (98-107); Cholesterol 288 mg/dL (140-199); Estimated Glomerular Filt Rate > 60 mL/min (>60); Globulin 2.9 g/dL (1.7-4.1); Glucose 115 mg/dL (70-99); HDL Cholesterol 56 mg/dL (40-60); HEMOLYSIS < 15 (0-50); Lipase 522 U/L (23-300); Potassium 4.7 mmol/L (3.4-5.1); Sodium 140 mmol/L (137-145); Total Protein 7.9 g/dL (6.3-8.2); Triglycerides 464 mg/dL (35-150)
[2024-09-07 20:32] LABS: HIV 1 & 2 Ab/Ag 4th Gen Combo NEGATIVE (NEGATIVE)
== END ==
PROVIDERS: PCP Physician Assistant; Visit Provider Physician Assistant
DX: R74.8 Abnormal levels of other serum enzymes (principal); I10 Essential (primary) hypertension; Z12.11 Encounter for screening for malignant neoplasm of colon; E78.5 Hyperlipidemia, unspecified; Z79.899 Other long term (current) drug therapy; Z11.4 Encounter for screening for human immunodeficiency virus [HIV]
CPT/HCPCS: 80053; 80061; 83690; 87389